=== PATIENT | female | born 1965 | race Caucasian/White ===

== ENCOUNTER → 2017-08-24 | Outpatient (CLI) | payer OTHER ==
[~2017-08-24] MED LIST: CETIRIZINE HCL10 MG PO; DIPHENHIST50 MG PO; FLONASE 0.05%50 MCG NASAL; GLIPIZIDE 10 MG10 MG PO; LISINOPRIL10 MG PO; METFORMIN HCL500 MG PO; NEURONTIN 300300 M1 PO; NEURONTIN300 MG PO; VENLAFAXIN75 MG/1 T2 PO; VENTOLIN HFA 1818 GM INH; VITAMIN B122500 MCG PO; VITAMIN D2000 UNIT PO
== END ==
LOC: M.RAD 15:08
DX: M25.512 Pain in left shoulder (principal); M25.511 Pain in right shoulder